=== PATIENT | female | born 1940 | race African-American/Black ===

== ENCOUNTER 2023-09-04 07:26 | Emergency (ER) | payer MEDICARE, MEDICAID ==
[~2023-09-04] VITALS: Ht 172.7 cm; Wt 81.6 kg
[~2023-09-04 07:26] MED LIST: AMLO-138 PO; ASPI-1497 MT; AZIT500T8 PO; CARV25TA47 PO; CHOL200016 PO; DICL100G58 TP; FERR-63 PO; GABA-534 MT; ISOS60TA76 PO; MEMA14CA5 PO; METF-416 MT; QUET25TA36 PO; RISP-28 PO; ROSU20TA2 MT; SITA100T11 PO; SPIR1TAB4 PO; TRAM-529 PO; VITA1TAB20 PO; ZOLP10TA2 PO
[2023-09-04 07:47] VITALS: O2SAT 99
[2023-09-04] MEDS: SODIUM CHLORIDE 0.9% 500 ML IV ONE (08:45)
[2023-09-04 09:37] LABS: BASOPHILS % 1.1 % (0.0-2.0); EOSINOPHILS % 9.1 % (0.0-5.0); HEMATOCRIT. 37.8 % (36.0-48.0); HEMOGLOBIN. 12.4 g/dL (12.0-16.0); LYMPHOCYTES % 44.9 % (20.0-50.0); MEAN CORPUSCULAR HGB CONC 32.8 g/dL (31.0-37.0); MEAN CORPUSCULAR VOLUME 94.4 fL (81.0-99.0); MEAN PLATELET VOLUME 9.6 fl (7.4-10.4); MONOCYTES % 6.9 % (2.0-8.0); PLATELET 187 x1000/uL (130-400); RED CELL DISTRIBUTION WIDTH 13.7 % (11.6-14.6); WHITE BLOOD COUNT 4.4 x1000/uL (4.5-11.0)
[2023-09-04 09:46] LABS: CARBON DIOXIDE 26 mEq/L (21-32); CHLORIDE 109 mEq/L (98-107); POTASSIUM 4.1 mEq/L (3.5-5.1); SODIUM 141 mEq/L (136-145)
[2023-09-04 09:52] LABS: CREATININE 0.9 mg/dL (0.6-1.0); GLUCOSE 93 mg/dL (70-105); PROTHROMBIN TIME 11.1 sec (9.6-11.0); UREA NITROGEN BLOOD 8 mg/dL (9-23)
[2023-09-04 09:56] LABS: TROPONIN I HIGH SENSITIVITY < 4 ng/L (3.0-34)
[2023-09-04 11:21] LABS: TROPONIN I HIGH SENSITIVITY < 4 ng/L (3.0-34)
[2023-09-04 11:45] LABS: CLARITY URINE CLEAR (CLEAR); COLOR URINE YELLOW (YELLOW); GLUCOSE URINE NEGATIVE (NEGATIVE); KETONES URINE NEGATIVE (NEGATIVE); LEUKOCYTE ESTERASE URINE TRACE (NEGATIVE); NITRITE URINE NEGATIVE (NEGATIVE); OCCULT BLOOD URINE NEGATIVE (NEGATIVE); PH URINE 5.5 (4.5-8.0); PROTEIN URINE NEGATIVE (NEGATIVE); SPECIFIC GRAVITY URINE 1.011 (1.005-1.030); UROBILINOGEN URINE 0.2 E.U./dL (0.2-1.0)
[2023-09-04 12:07] LABS: BACTERIA URINE 1+; RBC URINE 0-2 /hpf (0-2); SQUAMOUS EPITHELIAL CELL URINE 1+ /lpf (RARE/1+); YEAST URINE NONE SEEN
[2023-09-04] MEDS ORDERED: CEPH500C2 MT (12:20)
[2023-09-04] MEDS: CEFTRIAXONE 1GM/50ML 50 ML IV ONE (12:28)
[2023-09-04 12:47] VITALS: BP 161/72; PULSE 70; RESP 15; TEMP 98
== END 2023-09-04 12:59 | disposition home or self-care (01) ==
LOC: ER 07:30
DX: R07.89 Other chest pain (principal); N39.0 Urinary tract infection, site not specified; E11.9 Type 2 diabetes mellitus without complications; I11.0 Hypertensive heart disease with heart failure; I50.9 Heart failure, unspecified; Z79.899 Other long term (current) drug therapy; Z79.82 Long term (current) use of aspirin
CPT/HCPCS: 99285; 96365; 96361; 71045; 80048; 81003; 83880; 85025; 85610; 84484; 36415; 93005; J0696; J7030

== ENCOUNTER 2024-04-13 13:41 | Emergency (ER) | payer MEDICARE, MEDICAID ==
[~2024-04-13] VITALS: Ht 167.6 cm; Wt 90.0 kg
[~2024-04-13 13:41] MED LIST changes: -AZIT500T8 PO; -CARV25TA47 PO; -DICL100G58 TP; -GABA-534 MT; -QUET25TA36 PO; -RISP-28 PO; -ROSU20TA2 MT; -SPIR1TAB4 PO; -TRAM-529 PO; +VIT1CAPS26 MT; +VITA-384 PO; -VITA1TAB20 PO
[2024-04-13 13:43] VITALS: O2SAT 96
[2024-04-13 15:33] LABS: BASOPHILS % 1.3 % (0.0-2.0); EOSINOPHILS % 4.7 % (0.0-5.0); HEMATOCRIT. 39.2 % (36.0-48.0); HEMOGLOBIN. 12.6 g/dL (12.0-16.0); LYMPHOCYTES % 49.9 % (20.0-50.0); MEAN CORPUSCULAR HEMOGLOBIN 30.4 pg (28.0-32.0); MEAN CORPUSCULAR HGB CONC 32.1 g/dL (31.0-37.0); MEAN CORPUSCULAR VOLUME 94.9 fL (81.0-99.0); MEAN PLATELET VOLUME 9.3 fl (7.4-10.4); MONOCYTES % 9.1 % (2.0-8.0); PLATELET 184 x1000/uL (130-400); RED BLOOD CELL COUNT 4.13 mill/uL (4.2-5.4); RED CELL DISTRIBUTION WIDTH 14.2 % (11.6-14.6); WHITE BLOOD COUNT 5.1 x1000/uL (4.5-11.0)
[2024-04-13 15:42] LABS: CALCIUM 10.2 mg/dL (8.7-10.4)
[2024-04-13 15:46] LABS: PROTHROMBIN TIME 11.6 sec (9.6-11.0)
[2024-04-13 15:47] LABS: CREATININE 1.2 mg/dL (0.6-1.0)
[2024-04-13 18:35] VITALS: BP 126/79; PULSE 83; RESP 16; TEMP 36.7; O2SAT 98
== END 2024-04-13 18:46 | disposition home or self-care (01) ==
LOC: ER 13:41
DX: F03.90 Unspecified dementia, unspecified severity, without behavioral disturbance, psychotic disturbance, mood disturbance, and anxiety (principal); R10.9 Unspecified abdominal pain; E11.9 Type 2 diabetes mellitus without complications; J44.9 Chronic obstructive pulmonary disease, unspecified; I11.0 Hypertensive heart disease with heart failure; I50.9 Heart failure, unspecified; Z86.73 Personal history of transient ischemic attack (TIA), and cerebral infarction without residual deficits; Z79.899 Other long term (current) drug therapy; Z79.82 Long term (current) use of aspirin; Z79.84 Long term (current) use of oral hypoglycemic drugs
CPT/HCPCS: 36415; 74176; 80048; 85025; 99284